=== PATIENT | female | born 1960 | race Caucasian/White ===

== ENCOUNTER 2017-04-01 10:53 | Day surgery (SDC) | payer BC ==
[2017-03-31 18:05] VITALS: BMI 21.4
[2017-04-01] MEDS ORDERED: ROCURONIUM BROMIDE 50 MG/5 ML VIAL ONE (12:13)
[2017-04-01] MEDS ORDERED: MIDAZOLAM HCL 2 MG/2 ML SINGLE DOSE VIAL ONE (12:13)
[2017-04-01] MEDS ORDERED: PROPOFOL 20 ML ONE (12:13)
[2017-04-01] MEDS ORDERED: SODIUM BICARBONATE 8.4% - 50 ML ONE (12:14)
[2017-04-01] MEDS ORDERED: EPINEPHrine/PF 1 MG/1 ML (1:1,000) AMPULE ONE (12:22)
[2017-04-01] MEDS ORDERED: LIDOCAINE HCL 1%, 10 MG/ML (20ML VIAL) ONE (12:24)
[2017-04-01] MEDS ORDERED: LIDOCAINE HCL/PF 2% SDV 5ML VIAL ONE (12:42)
[2017-04-01] MEDS ORDERED: SODIUM CHLORIDE 0.9% P/F 10 ML VIAL IJ ONE (12:55)
[2017-04-01] MEDS ORDERED: ceFAZolin SODIUM 1 GM VIAL ONE (12:55)
[2017-04-01] MEDS ORDERED: ceFAZolin SODIUM 1 GM VIAL IVPB ONE (12:56)
[2017-04-01] MEDS ORDERED: DEXAMETHASONE SOD PHOSPHATE 4 MG/1 ML VIAL ONE (13:00)
[2017-04-01] MEDS ORDERED: LIDOCAINE 1%/EPI 1:100000 (20 ML MULTI DOSE VIAL) ONE (13:02)
[2017-04-01] MEDS ORDERED: DESFLURANE GAS 240 ML BOTTLE IH ONE (13:46)
[2017-04-01] MEDS ORDERED: MINERAL OIL 25 ML OIL ONE (15:09)
[2017-04-01] MEDS ORDERED: MINERAL OIL 25 ML OIL TP ONE ×2 (15:10)
[2017-04-01] MEDS ORDERED: NEOSTIGMINE METHYLSULFATE 0.5 MG/ML - 10 ML MDV ONE (15:13)
[2017-04-01] MEDS ORDERED: GLYCOPYRROLATE 0.2 MG/1 ML VIAL ONE (15:13)
[2017-04-01] MEDS ORDERED: PROMETHAZINE HCL 25 MG/1 ML VIAL IVPB PRN (15:33)
[2017-04-01] MEDS ORDERED: ONDANSETRON 4 MG/2 ML VIAL IVPUSH PRN (15:33)
[2017-04-01] MEDS ORDERED: LACTATED RINGERS SOLUTION 1,000 ML IV SCH (15:45)
[2017-04-01 17:51] VITALS: TEMP 98.4
[2017-04-01 19:29] VITALS: BP 150/84; PULSE 80
--- NOTE | 2017-04-01 20:03 | OP ---
DATE OF OPERATION: 04/01/2017 SURGEON: Alli Rodriguez M.D. GLASSIE SURGEON: Khadra Anne PREOPERATIVE DIAGNOSIS: 1. Bilateral acquired chest wall deformity status post bilateral mastectomy. 2. Asymmetry of chest wall. 3. Status post open cardiac surgery with sternal scar. 4. Personal history of breast carcinoma. POSTOPERATIVE DIAGNOSIS: 1. Bilateral acquired chest wall deformity status post bilateral mastectomy. 2. Asymmetry of chest wall. 3. Status post open cardiac surgery with sternal scar. 4. Personal history of breast carcinoma. OPERATIVE PROCEDURE: 1. Right breast reconstruction with other technique. 2. Left breast reconstruction with other technique. OPERATIVE INDICATION: Patient is a young woman who underwent bilateral mastectomy for breast cancer issues with reconstruction and then developed mitral valve prolapse requiring open sternotomy and cardiac surgery. The patient presents with an acquired chest wall deformity with midline scar from previous open sternotomy and malposition of her implants and reconstruction. The risks and benefits of surgical versus nonsurgical alternatives as well as material complications of breast reconstruction with the above technique were described on multiple occasions preoperatively. She agreed to the planned procedure. All questions were asked and answered on multiple occasions preoperatively and again today in the holding area, when the patient was marked in the standing position with her sister in attendance. OPERATIVE PROCEDURE IN DETAIL: Patient was taken to the operating room, and after induction of general anesthesia in the supine position, the markings which we made in the standing position preoperatively were remarked and confirmed on the table. At this point, the entire chest wall, abdomen, flank region was prepped with Chloraprep solution over the entire stent. Sterile drapes were placed in the usual fashion. A timeout was called. At this point, the mastectomy scars were injected with 1% local lidocaine anesthesia with 1:200,000 epinephrine, and area in the flank region was also injected for reconstructive purposes. At this point, after allowing topical anesthesia and hemostasis, attention was turned to the right chest wall. Incision was made down through the mastectomy scar, through the subcutaneous tissue, down to the underlying chest wall and deep tissues of the chest wall itself. Another incision was carried out in the lower portion of the sternotomy scar, incising the tissue of the lower portion of the scar and undermining the tissues in the midline to free the adherent deforming scar deformity. The left breast was then attended to, and incision also made in the mastectomy scar down through the skin and subcutaneous tissue, down through the deep tissue into the layers above and below the pectoralis major muscle. Attention was then turned to the abdominal region. An incision was made at the left flank and also at the right flank to harvest tissue for reconstructive purposes. Incision was made and then down into the deep planes over the rectus fascia laterally over the external oblique and flank area and tissue was harvested for reconstruction. This tissue was transferred to the back table, prepared, cleansed and washed for reconstruction, and then after undermining the tissues in the chest wall, the tissue was transferred to the right breast in the superior, medial, central, lateral, and inferior portions of the right breast, and then the left superior, medial, lateral, central, and inferior portions of the left breast independently. Tissue was also then placed beneath the sternotomy scar to correct asymmetries and the deformity of the midline chest wall defect. Good shape and contour was seen in the sitting position. All wounds were dressed after closure with interrupted and running sutures on both donor and recipient areas. All wounds were dressed with Dermabond and Steri-Strip dressing. The patient was awakened, extubated, and transferred to the recovery room in satisfactory condition. ALLI RODRIGUEZ M.D. [id number]
--- NOTE | 2017-04-01 20:10 | OP ---
DATE OF OPERATION: 04/01/2017 SURGEON: Beata Rodriguez M.D. GLASS BREAKER SURGEON: Khadra Anne PREOPERATIVE DIAGNOSIS: Aging face deformity. POSTOPERATIVE DIAGNOSIS: Aging face deformity. OPERATIVE PROCEDURE: Bilateral lower neck and face lift procedure. OPERATIVE INDICATION: The patient is a 56-year-old white female who desired facial cosmetic surgery and neck and facelifting procedures. The risks and benefits, surgical versus nonsurgical alternatives, as well as material complications of these procedures were described on multiple occasions preoperatively as well as today in the holding area. OPERATIVE PROCEDURE IN DETAIL: Patient was taken to the operating room, and after induction of general anesthesia in supine position, and after previous surgery, attention was turned to the face. At this point, 1% lidocaine with 1:200,000 epinephrine was diluted with equal parts of saline to produce 0.5% local lidocaine anesthesia with 1:200,000 epinephrine. This was then injected into the preauricular scar in the retrotragal and postauricular areas as well as the face and throughout the neck with an injection cannula. After allowing topical anesthesia and hemostasis for approximately 15 minutes, attention was turned to the right face. The preauricular and retrotragal incision was carried out down through the skin to the deep dermal tissue, and then the tissues were raised in the usual fashion for facelifting over the anterior face and over the anteriorly. Dissection was then carried around the post-auricular area, and the post-auricular skin and tissue was raised using 2.5 optical magnification. Dissection was carried across the midline at this point, and then suction-assisted lipectomy was carried out through a midline stab incision, suctioning the tissues from the anterior and lateral neck. The exact same procedure was carried out symmetrically on the opposite left side, and then after hemostasis was meticulously obtained throughout the pockets bilaterally, using the bipolar electrocautery and optical magnification of 2.5 power, the skin was advanced and closed in superior direction for the usual facelifting techniques. Skin and subcutaneous tissue showed good viability and good contour. The wounds were trimmed and then sutured using 3-0 Biosyn suture on the deep dermis in the pre and post-auricular area as well as 4-0 Prolene suture in the retroauricular area and 5-0 nylon sutures in the preauricular area bilaterally. The interrupted suture in the submental region was also closed with interrupted 5-0 nylon sutures. Good shape and contour was seen on the face at this point, and good symmetry was seen throughout. A dry sterile dressing with mineral oil cotton batting and a circumferential wrap with Janell bandage and Coban was placed in the usual fashion and showed good viability of all areas of the face at this point. The patient was then awakened, extubated, and transferred to the recovery room in satisfactory condition and tolerated procedure very well. BEATA RODRIGUEZ M.D. [id number]
[2017-04-03 06:06] LABS: HBsAG SCREEN Negative (Negative)
== END 2017-04-01 19:30 | disposition home or self-care (01) ==
LOC: JASU-SURG 10:53
PROVIDERS: ATTEND Plastic Surgery
PROC: 0JB80ZZ Excision of Abdomen Subcutaneous Tissue and Fascia, Open Approach (ICD-10-PCS; 2017-04-01)
PROC: 0W060ZZ Alteration of Neck, Open Approach (ICD-10-PCS; 2017-04-01)
PROC: 0W020ZZ Alteration of Face, Open Approach (ICD-10-PCS; 2017-04-01)
PROC: 0HRV07Z Replacement of Bilateral Breast with Autologous Tissue Substitute, Open Approach (ICD-10-PCS; principal; 2017-04-01 12:00)
DX: M95.4 Acquired deformity of chest and rib (principal); Z85.3 Personal history of malignant neoplasm of breast; Z90.13 Acquired absence of bilateral breasts and nipples; N64.89 Other specified disorders of breast; Z98.890 Other specified postprocedural states
CPT/HCPCS: 36415; 84460; 86803; 87340; 87389; 94760